=== PATIENT | female | born 1985 | race American Indian/Alaskan Native ===

== ENCOUNTER 2022-02-24 20:05 | Emergency (ER) | payer BC, OTHER ==
[~2022-02-24] VITALS: Ht 170.2 cm; Wt 70.3 kg
[~2022-02-24 20:05] MED LIST: ACETAMINOPHEN325 M1 PO; BENTYL20 MG PO; HYDROMORPHO1 MG/1 M1 PO; NORCO 5-325 TA1 EACH PO; OXYCODONE HC20 MG/ML PO; PHENTERMINE H37.5 M1 PO; ZOFRAN4 MG PO
--- OUTSIDE RECORDS SUMMARY | 2022-02-24 20:08 | XMS ---
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 Hayley has no Care Guidelines for this patient. [place] VISIT COUNT (12 MO.) 1 ROSEMARY Martínez TOTAL 1 NOTE: Visits indicate total known visits. ED/C VISIT TRACKING (12 MO.) 02/24/2022 20:06 ROSEMARY Oliveira [place] TYPE: Emergency COMPLAINT: - BACK PAIN INPATIENT VISIT TRACKING (12 MO.) No inpatient visits to display in this time frame [email or web address]
[2022-02-24] MEDS ORDERED: ULTRAM50 MG PO (21:16)
[2022-02-24] MEDS ORDERED: MELOXICAM15 MG PO (21:16)
== END 2022-02-24 22:00 | disposition home or self-care (01) ==
LOC: ED 20:05
DX: S29.012A Strain of muscle and tendon of back wall of thorax, initial encounter (principal); X58.XXXA Exposure to other specified factors, initial encounter
CPT/HCPCS: 72070; 96372; 99283-25; A9270; J1885; J2270; J3360

== ENCOUNTER 2024-12-02 08:59 | Emergency (ER) | payer BC, OTHER ==
[~2024-12-02] VITALS: Ht 170.2 cm; Wt 64.0 kg
[~2024-12-02 08:59] MED LIST changes: +MELOXICAM15 MG PO; +OXYCODONE HCL5 MG PO; +ULTRAM50 MG PO; +WEGOVY2.4 MG/0.7 SQ
[2024-12-02] MEDS ORDERED: SODIUM CHLORIDE 0.9% 1,000 ML IV ONE (09:30)
[2024-12-02 09:55] LABS: BASOPHILS 0.4 % (0.1-1.2); EOSINOPHILS 0.4 % (0.7-5.8); LYMPHOCYTES 13.4 % (19.3-51.7); MCH 30.3 PG (25.6-32.2); MCHC 33.3 g/dL (32.2-35.5); MCV 90.8 fL (79.4-94.8); MONOCYTES 7.4 % (4.7-12.5); NEUTROPHILS 78.1 % (34.0-71.1); RBC 3.90 M/uL (3.93-5.22)
[2024-12-02 10:11] LABS: ALT (SGPT) 12.0 U/L (14-59); AST (SGOT) 10.0 U/L (15-37); GLOMERULAR FILTRATION RATE,EST 83.0 mL/min (>60); PROTEIN, TOTAL 7.4 g/dL (6.4-8.2); UREA NITROGEN 14.0 mg/dL (7-18)
[2024-12-02] MEDS ORDERED: DIATRIZOATE MEGLU/DIATRIZO SOD 15 ML BTL PO ONE (11:15)
[2024-12-02 12:59] VITALS: BP 111/74
== END 2024-12-02 13:01 | disposition home or self-care (01) ==
LOC: ED 08:59
PROVIDERS: Emergency Medicine
DX: R10.12 Left upper quadrant pain (principal); Z90.49 Acquired absence of other specified parts of digestive tract; Z98.84 Bariatric surgery status; Z79.85 Long-term (current) use of injectable non-insulin antidiabetic drugs
CPT/HCPCS: 36415; 74150; 80053; 83690; 84703; 85025; 96361; 96374; 99284-25; J2405; J7030